=== PATIENT | male | born 1955 | race Caucasian/White ===

== ENCOUNTER 2019-12-25 17:36 | Emergency (ER) | payer MEDICAID ==
[~2019-12-25] VITALS: Ht 172.7 cm; Wt 90.7 kg
[2019-12-25 17:38] VITALS: BP 115/76
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
[2019-12-25] MEDS ORDERED: NACL 0.9% 1,000 ML IV ONE ×2 (18:20→19:55)
[2019-12-25] MEDS ORDERED: CLINDAMYCIN 900 MG in DEXTROSE 5% 100 ML IV ONE (18:20)
[2019-12-25] MEDS ORDERED: MORPHINE SULFATE 4 MG/ML SYR IVP ONE (18:20)
[2019-12-25] MEDS ORDERED: CLINDAMYCIN 900 MG/6 ML VIAL IV ONE (18:31)
[2019-12-25 18:56] LABS: BASOPHILS # (AUTO) 0.1 K/uL (0.00-0.22); EOSINOPHILS # (AUTO) 0.3 K/uL (0-0.4); EOSINOPHILS % (AUTO) 2.8 % (0.0-4.0); HEMOGLOBIN 13.8 g/dL (12.0-18.0); LYMPHOCYTES # (AUTO) 2.2 K/uL (2.0-11.5); LYMPHOCYTES % (AUTO) 20.7 % (20.5-51.1); MEAN CORPUSCULAR HEMOGLOBIN 30 pg (27-31); MEAN CORPUSCULAR HGB CONC 35 g/dL (33-37); MEAN CORPUSCULAR VOLUME 86.2 fL (80-94); MONOCYTES # (AUTO) 0.8 K/uL (0.8-1.0); MONOCYTES % (AUTO) 7.5 % (1.7-9.3); NEUTROPHILS # (AUTO) 7.3 K/uL (1.8-7.7); PLATELET COUNT (AUTO) 418 K/uL (140-450); RED BLOOD CELL COUNT(AUTO) 4.64 MIL/uL (4.20-6.10); RED CELL DISTRIBUTION WIDTH 13.5 % (11.6-13.7); WHITE BLOOD COUNT (AUTO) 10.7 K/uL (4.8-10.8)
[2019-12-25 19:09] LABS: ALBUMIN 3.7 g/dL (3.4-5.0); ANION GAP 15.6 (8-16); CARBON DIOXIDE 23.4 mmol/L (21-32); CREATININE 1.3 mg/dL (0.6-1.3); TOTAL BILIRUBIN 0.4 mg/dL (0.0-1.0)
--- NOTE | 2019-12-25 19:11 | NUR ---
RECEIVED REPORT FROM Giovanna Case FROM LAB. CRITICAL RESULT GLUCOSE 515. ER MADE AWARE.
--- NOTE | 2019-12-25 19:11 | NUR ---
PT ENDORESED TO ALEJANDRA VILLAREAL FOR CONTINUITY OF CARE.
--- NOTE | 2019-12-25 19:15 | NUR ---
RECIVED REPORT FROM MARGARITA ROBERTS. CONTINUATION OF CARE.
--- NOTE | 2019-12-25 19:17 | NUR ---
RECEIVED PT A&OX4, VERBALIZES 0/10 PAIN. IV SITE PATENT, ANTIBIOTICS RUNNING ORDERED. BED LOCKED AND LOWEST POSITION.
--- NOTE | 2019-12-25 19:40 | NUR ---
Dr. River examining patient.
[2019-12-25] MEDS ORDERED: INSULIN REGULAR, HUMAN 100 UNIT/ML VIAL IVP ONE (19:55)
--- NOTE | 2019-12-25 20:19 | NUR ---
BLOOD SUGAR CHECKED, NOTIFIED SCOTTY HUTSON OF GLUCOSE LEVEL OF 405 AND THAT INSULIN WAS GIVEN ORDERED.
--- NOTE | 2019-12-25 21:06 | NUR ---
SCOTTY HUTSON WITH PT
--- NOTE | 2019-12-25 21:10 | NUR ---
NOTIFIED SCOTTY HUTSON OF PATIENTS GLUCOSE RESULT OF 249.
[2019-12-25 21:29] VITALS: BP 116/76
--- NOTE | 2019-12-25 21:29 | NUR ---
Patient discharged with v/s stable. Written and verbal after care instructions given and explained. Patient alert, oriented and verbalized understanding of instructions. Ambulatory with steady gait. All questions addressed prior to discharge. ID band removed. Patient advised to follow up with PMD. Rx of KEFLEX & NORCO given. Patient educated on indication of medication including possible reaction and side effects. Opportunity to ask questions provided and answered.
--- NOTE | 2019-12-25 21:29 | NUR ---
IV removed, catheter intact and site benign. Applied folded 4x4 gauze and tape to stop bleeding.
== END 2019-12-25 21:29 | disposition home or self-care (01) ==
LOC: MED 17:36
DX: L03.312 Cellulitis of back [any part except buttock and flank] (principal); E11.9 Type 2 diabetes mellitus without complications; E78.5 Hyperlipidemia, unspecified; R73.9 Hyperglycemia, unspecified; I10 Essential (primary) hypertension; Z48.00 Encounter for change or removal of nonsurgical wound dressing; Z90.49 Acquired absence of other specified parts of digestive tract
CPT/HCPCS: 36415; 80053; 81002; 82948; 85025; 87040; 96361; 96365; 96375; 99284; J1815; J2270; J3490; J7030

== ENCOUNTER 2020-01-08 20:44 | Emergency (ER) | payer MEDICAID ==
[~2020-01-08] VITALS: Ht 172.7 cm; Wt 81.6 kg
[2020-01-08 20:46] VITALS: BP 147/106
== END 2020-01-08 22:40 | disposition home or self-care (01) ==
LOC: MED 20:44
DX: R06.02 Shortness of breath (principal); E11.9 Type 2 diabetes mellitus without complications; I10 Essential (primary) hypertension; Z90.49 Acquired absence of other specified parts of digestive tract; Z48.01 Encounter for change or removal of surgical wound dressing
CPT/HCPCS: 71045; 99284

== ENCOUNTER 2020-01-18 12:56 | Emergency (ER) | payer MEDICAID ==
[~2020-01-18] VITALS: Ht 172.7 cm; Wt 81.6 kg
[2020-01-18 13:25] VITALS: BP 135/90
[2020-01-18 16:09] VITALS: BP 124/85
== END 2020-01-18 16:00 | disposition home or self-care (01) ==
LOC: MED 12:56
DX: S21.202A Unspecified open wound of left back wall of thorax without penetration into thoracic cavity, initial encounter (principal); L08.9 Local infection of the skin and subcutaneous tissue, unspecified; R06.02 Shortness of breath; E11.9 Type 2 diabetes mellitus without complications; I10 Essential (primary) hypertension; F17.200 Nicotine dependence, unspecified, uncomplicated; Z90.49 Acquired absence of other specified parts of digestive tract; W45.8XXA Other foreign body or object entering through skin, initial encounter; Y93.89 Activity, other specified; Y92.89 Other specified places as the place of occurrence of the external cause; Y99.8 Other external cause status
CPT/HCPCS: 71045; 99283

== ENCOUNTER 2020-05-04 01:05 | Emergency (ER) | payer MEDICAID ==
[~2020-05-04] VITALS: Ht 172.7 cm; Wt 84.4 kg
[2020-05-04 01:08] VITALS: BP 154/100
[2020-05-04] MEDS ORDERED: NACL 0.9% 1,000 ML IV ONE ×2 (02:30→03:35)
[2020-05-04] MEDS ORDERED: KETOROLAC 30 MG/ML VIAL IVP ONE (02:30)
[2020-05-04 03:20] LABS: ALBUMIN 3.5 g/dL (3.4-5.0); ANION GAP 15.9 (8-16); CARBON DIOXIDE 24.3 mmol/L (21-32); CREATININE 1.1 mg/dL (0.6-1.3); POTASSIUM 4.2 mmol/L (3.5-5.1); TOTAL BILIRUBIN 0.5 mg/dL (0.0-1.0)
[2020-05-04 03:27] LABS: HEMATOCRIT 44.3 % (36-52); HEMOGLOBIN 15.7 g/dL (12.0-18.0); MEAN CORPUSCULAR HEMOGLOBIN 30 pg (27-31); MEAN CORPUSCULAR HGB CONC 36 g/dL (33-37); MEAN CORPUSCULAR VOLUME 84.2 fL (80-94); PLATELET COUNT (AUTO) 350 K/uL (140-450); RED BLOOD CELL COUNT(AUTO) 5.26 MIL/uL (4.20-6.10); RED CELL DISTRIBUTION WIDTH 14.3 % (11.6-13.7); WHITE BLOOD COUNT (AUTO) 10.5 K/uL (4.8-10.8)
[2020-05-04] MEDS ORDERED: INSULIN REGULAR, HUMAN 100 UNIT/ML VIAL IV ONE (03:35)
[2020-05-04 03:42] LABS: LYMPHOCYTES % (MANUAL) 25 % (20-46)
[2020-05-04 03:43] LABS: EOSINOPHILS % (MANUAL) 2 % (0-4); MONOCYTES % (MANUAL) 3 % (5-12)
[2020-05-04] MEDS ORDERED: IBUP-2218 PO ×2 (05:37→05:52)
[2020-05-04] MEDS ORDERED: ACYC-278 PO ×2 (05:37→05:52)
[2020-05-04 05:56] VITALS: BP 147/89
== END 2020-05-04 05:57 | disposition home or self-care (01) ==
LOC: MED 01:05
DX: R10.9 Unspecified abdominal pain (principal); N50.811 Right testicular pain; E11.9 Type 2 diabetes mellitus without complications; I10 Essential (primary) hypertension
CPT/HCPCS: 36415; 74176; 80053; 82948; 85025; 96361; 96374; 96375; 99284; J1885; J7030; J1815

== ENCOUNTER 2020-08-16 07:01 | Emergency (ER) | payer MEDICAID ==
[~2020-08-16] VITALS: Ht 172.7 cm; Wt 70.8 kg
[~2020-08-16 07:01] MED LIST: ACYC-278 PO; IBUP-2218 PO
[2020-08-16 07:03] VITALS: BP 179/97
[2020-08-16] MEDS ORDERED: NACL 0.9% 1,000 ML IV ONE (07:25)
[2020-08-16 07:41] LABS: BASOPHILS # (AUTO) 0.1 K/uL (0.00-0.22); BASOPHILS % (AUTO) 1.1 % (0.0-2.0); EOSINOPHILS # (AUTO) 0.2 K/uL (0-0.4); EOSINOPHILS % (AUTO) 2.1 % (0.0-4.0); HEMATOCRIT 47.4 % (36-52); HEMOGLOBIN 16.1 g/dL (12.0-18.0); LYMPHOCYTES # (AUTO) 2.3 K/uL (2.0-11.5); LYMPHOCYTES % (AUTO) 28.8 % (20.5-51.1); MEAN CORPUSCULAR HEMOGLOBIN 30 pg (27-31); MEAN CORPUSCULAR HGB CONC 34 g/dL (33-37); MEAN CORPUSCULAR VOLUME 88.4 fL (80-94); MONOCYTES # (AUTO) 0.6 K/uL (0.8-1.0); MONOCYTES % (AUTO) 7.6 % (1.7-9.3); NEUTROPHILS # (AUTO) 4.8 K/uL (1.8-7.7); NEUTROPHILS % (AUTO) 60.4 % (42.2-75.2); PLATELET COUNT (AUTO) 349 K/uL (140-450); RED BLOOD CELL COUNT(AUTO) 5.36 MIL/uL (4.20-6.10); RED CELL DISTRIBUTION WIDTH 13.4 % (11.6-13.7); WHITE BLOOD COUNT (AUTO) 7.9 K/uL (4.8-10.8)
[2020-08-16 07:57] LABS: ALBUMIN 3.5 g/dL (3.4-5.0); ANION GAP 14.2 (8-16); ASPARTATE AMINOTRANSFERASE 7 U/L (15-37); CARBON DIOXIDE 26.5 mmol/L (21-32); CHLORIDE 96 mmol/L (98-107); CREATININE 1.1 mg/dL (0.6-1.3); GFR ARICAN-AMERICAN 86 mL/min (>90); LIPASE 222 U/L (73-393); POTASSIUM 3.7 mmol/L (3.5-5.1); SODIUM SERUM 133 mmol/L (136-145); TOTAL BILIRUBIN 0.4 mg/dL (0.0-1.0); UREA NITROGEN, BLOOD 14 mg/dL (7-18)
[2020-08-16 08:04] LABS: GLUCOSE 530 mg/dL (74-106)
[2020-08-16 08:06] LABS: ACETONE, SERUM NEGATIVE (NEGATIVE)
[2020-08-16 08:23] LABS: APPEARANCE,URINE CLEAR (CLEAR); BILIRUBIN,URINE NEGATIVE (NEGATIVE); BLOOD, URINE NEGATIVE (NEGATIVE); COLOR,URINE YELLOW (YELLOW); LEUKOCYTE ESTERASE ,URINE NEGATIVE (NEGATIVE); NITRITE, URINE NEGATIVE (NEGATIVE); PH,URINE 6.5 (5.0-9.0); UGLUCOSE 3+ (NEGATIVE)
[2020-08-16 08:31] LABS: RBC,URINE 0-5 /HPF (0-5); WBC,URINE 0-5 /HPF (0-5)
[2020-08-16] MEDS ORDERED: MECL-303 PO (10:13)
[2020-08-16 10:26] VITALS: BP 167/90
== END 2020-08-16 10:26 | disposition home or self-care (01) ==
LOC: MED 07:01
DX: E11.65 Type 2 diabetes mellitus with hyperglycemia (principal); I10 Essential (primary) hypertension; R42 Dizziness and giddiness
CPT/HCPCS: 36415; 70470; 71045; 80053; 81001; 82009; 82803; 83690; 85025; 87426; 96360; 99285; J7030; Q9967